=== PATIENT | female | born 1955 | race Caucasian/White ===

== ENCOUNTER → 2016-09-22 | Outpatient (CLI) | payer BC ==
[~2016-09-22] MED LIST: ESTRACE1 MG PO; FLONASE16 G1 BOTH NARES; HAIR, SKIN &66.7 MCG PO; MOTRIN800 MG PO; NATURAL LUTEIN20 MG PO; PERCOCET 5/31 TABLET PO; PROGESTERONE100 MG PO; TAMIFLU75 MG PO; VENTOLIN HFA18 GM IH; ZYRTEC10 M3 PO
== END | disposition home or self-care (01) ==
LOC: CDC 08:13
DX: Z01.810 Encounter for preprocedural cardiovascular examination (principal); R22.41 Localized swelling, mass and lump, right lower limb
CPT/HCPCS: 93000

== ENCOUNTER 2016-10-08 12:25 | Day surgery (SDC) | payer BC ==
[~2016-10-08] VITALS: Ht 177.8 cm; Wt 66.2 kg
[~2016-10-08 12:25] MED LIST changes: +ALLER-TEC10 MG PO
[2016-10-08 12:56] VITALS: BP 125/67
[2016-10-08 13:13] LABS: POINT-OF-CARE METER ID UU14174212
[2016-10-08 17:45] VITALS: BP 149/76
[2016-10-08 18:25] VITALS: BP 140/71
== END 2016-10-08 18:32 | disposition home or self-care (01) ==
LOC: SDC 12:25
PROVIDERS: Surgery Plastic and Reconstructive Surgery
PROC: 0JBL0ZZ Excision of Right Upper Leg Subcutaneous Tissue and Fascia, Open Approach (ICD-10-PCS; principal; 2016-10-08)
DX: D17.23 Benign lipomatous neoplasm of skin and subcutaneous tissue of right leg (principal); G62.9 Polyneuropathy, unspecified; Z87.891 Personal history of nicotine dependence
CPT/HCPCS: 82948; 88304; J0690; J1100; J2405; J2765; J3010